=== PATIENT | female | born 1950 | race Caucasian/White ===

== ENCOUNTER → 2022-05-30 | Outpatient (REF) | payer MEDICARE ==
[2022-05-30 15:46] LABS: ALBUMIN 3.5 G/DL (3.2-5.2); BILIRUBIN,DIRECT 0.4 MG/DL (<0.4); BILIRUBIN,TOTAL 1.2 MG/DL (0.3-1.2); CHOLESTEROL RISK RATIO 3.7 (<5); HDL CHOLESTEROL 43.7 MG/DL (>40); LDL CHOLESTEROL 77.5 MG/DL (<100); TOTAL PROTEIN 6.2 G/DL (5.7-8.2)
[2022-05-30 15:50] LABS: THYROID STIMULATING HORMONE 12.075 uIU/ML (0.55-4.78); TOTAL 25(OH) VITAMIN D 49.2 NG/ML (20.0-100.0)
[2022-05-30 16:08] LABS: BASO # 0.1 10^3/uL (0.0-0.2); EOS # 0.4 10^3/uL (0.0-0.5); HEMATOCRIT 46.2 % (36.0-47.0); HEMOGLOBIN 14.4 g/dl (12.0-15.5); LYMPH # 1.4 10^3/uL (1.5-5.0); LYMPH % 22.5 % (24.0-44.0); MEAN CORPUSCULAR HEMOGLOBIN 33.6 pg (27.0-33.0); MEAN CORPUSCULAR HGB CONC 31.2 g/dl (32.0-36.5); MEAN CORPUSCULAR VOLUME 107.9 fl (80.0-96.0); MONO # 0.4 10^3/uL (0.0-0.8); MONO % 6.8 % (2.0-8.0); NEUTROPHILS # 3.8 10^3/uL (1.5-8.5); NEUTROPHILS % 62.5 % (36.0-66.0); PLATELET COUNT, AUTOMATED 232 10^3/uL (150-450); RED BLOOD COUNT 4.28 10^6/uL (4.00-5.40)
[2022-05-30 17:23] LABS: HEMOGLOBIN A1c 4.7 % (4.0-6.0)
[2022-05-31 11:12] LABS: CALCIUM LEVEL 9.8 MG/DL (8.3-10.6); CREATININE FOR GFR 0.99 MG/DL (0.55-1.30); GLOMERULAR FILTRATION RATE 58.7 (>39); POTASSIUM SERUM 4.2 MMOL/L (3.5-5.1)
[2022-05-31 11:14] LABS: FOLATE 19.5 NG/ML (>5.4)
[2022-05-31 11:15] LABS: FREE T4 0.95 NG/DL (0.89-1.76)
== END ==
LOC: M LAB REF 14:34
PROVIDERS: ATTEND Nurse Practitioner Family
DX: Z00.00 Encounter for general adult medical examination without abnormal findings (principal); I10 Essential (primary) hypertension; E03.9 Hypothyroidism, unspecified; D75.89 Other specified diseases of blood and blood-forming organs

== ENCOUNTER → 2022-06-19 | Outpatient (REF) | payer MEDICARE ==
[2022-06-19 15:54] LABS: CALCIUM LEVEL 9.6 MG/DL (8.3-10.6); CREATININE FOR GFR 0.99 MG/DL (0.55-1.30); GLOMERULAR FILTRATION RATE 58.7 (>39); POTASSIUM SERUM 4.1 MMOL/L (3.5-5.1)
[2022-06-19 15:56] LABS: FREE T4 0.98 NG/DL (0.89-1.76)
[2022-06-19 15:57] LABS: FOLATE 17.13 NG/ML (>5.4)
== END ==
LOC: M LAB REF 15:00
PROVIDERS: ATTEND Nurse Practitioner Family
DX: E03.9 Hypothyroidism, unspecified (principal); D75.89 Other specified diseases of blood and blood-forming organs

== ENCOUNTER → 2022-07-17 | Outpatient (REF) | payer MEDICARE ==
[2022-07-17 17:19] LABS: FREE T4 0.93 NG/DL (0.89-1.76); THYROID STIMULATING HORMONE 7.763 uIU/ML (0.55-4.78)
== END ==
LOC: M LAB REF 16:32
PROVIDERS: ATTEND Nurse Practitioner Family
DX: E03.9 Hypothyroidism, unspecified (principal)

== ENCOUNTER 2022-09-21 12:40 | Inpatient (IN) | payer MEDICARE ==
[~2022-09-21] VITALS: Ht 165.1 cm; Wt 76.5 kg
[2022-09-21] MEDS ORDERED: NS 1,000 ML IV ONE ×2 (12:50→14:45)
[2022-09-21] MEDS ORDERED: LISI5TAB11 PO (13:04)
[2022-09-21] MEDS ORDERED: ELIQ5TAB PO (13:04)
[2022-09-21] MEDS ORDERED: LABE20TAB PO (13:04)
[2022-09-21] MEDS ORDERED: ATOR40TA75 PO (13:04)
[2022-09-21] MEDS ORDERED: AMLO1TAB24 PO (13:04)
[2022-09-21] MEDS ORDERED: TRAZ-252 PO (13:04)
[2022-09-21] MEDS ORDERED: LEVO50TA5 PO (13:04)
[2022-09-21 13:13] LABS: BASO % 0.1 % (0.0-1.0); EOS % 0.2 % (0.0-3.0); HEMATOCRIT 35.6 % (36.0-47.0); HEMOGLOBIN 11.9 g/dl (12.0-15.5); LYMPH # 0.8 10^3/uL (1.5-5.0); LYMPH % 4.8 % (24.0-44.0); MEAN CORPUSCULAR HEMOGLOBIN 33.7 pg (27.0-33.0); MEAN CORPUSCULAR HGB CONC 33.4 g/dl (32.0-36.5); MEAN CORPUSCULAR VOLUME 100.8 fl (80.0-96.0); MONO # 0.9 10^3/uL (0.0-0.8); MONO % 5.4 % (2.0-8.0); NEUTROPHILS # 15.4 10^3/uL (1.5-8.5); PLATELET COUNT, AUTOMATED 185 10^3/uL (150-450); RED BLOOD COUNT 3.53 10^6/uL (4.00-5.40); WHITE BLOOD COUNT 17.2 10^3/uL (4.0-10.0)
[2022-09-21 13:42] LABS: ALBUMIN 2.2 G/DL (3.2-5.2); BILIRUBIN,DIRECT 1.3 MG/DL (<0.4); BILIRUBIN,TOTAL 2.2 MG/DL (0.3-1.2); CALCIUM LEVEL 8.2 MG/DL (8.3-10.6); CREATININE FOR GFR 1.89 MG/DL (0.55-1.30); GLOMERULAR FILTRATION RATE 27.8 (>39); POTASSIUM SERUM 4.7 MMOL/L (3.5-5.1); TOTAL PROTEIN 4.8 G/DL (5.7-8.2)
[2022-09-21] MEDS ORDERED: CIPROFLOXACIN 400 MG in IV 1 EA IV ONE (14:35)
[2022-09-21] MEDS ORDERED: metroNIDAZOLE 500 MG in IV 1 EA IV ONE (14:35)
[2022-09-21] MEDS ORDERED: fentaNYL 100 MCG/2 ML INJECTION IV ONE (15:05)
[2022-09-21] MEDS ORDERED: ONDANSETRON 4MG 2ML VIAL IV ONE (21:15)
[2022-09-21] MEDS ORDERED: fentaNYL 100 MCG/2 ML INJECTION IV PRN (21:15)
[2022-09-21] MEDS ORDERED: NS 1,000 ML IV SCH (21:15)
[2022-09-21] MEDS ORDERED: HOME MED LIST COMPLETE! XX SCH (21:35)
[2022-09-21] MEDS ORDERED: ONDANSETRON 4MG 2ML VIAL IV PRN ×2 (22:10→22:20)
[2022-09-21] MEDS ORDERED: MORPHINE 2 MG/ML 1ML VIAL IV PRN (22:10)
[2022-09-21] MEDS ORDERED: PANTOPRAZOLE 40MG VIAL IV ONE (22:45)
[2022-09-21] MEDS ORDERED: RAMELTEON 8 MG TAB (ROZEREM) PO PRN (22:55)
[2022-09-21] MEDS ORDERED: LEVOTHYROXINE 50MCG TABLET (0.05MG) PO SCH (22:58)
[2022-09-22] MEDS ORDERED: LevoFLOXacin IV 750 MG in IV 1 EA IV SCH ×2
[2022-09-22 00:01] LABS: FREE T4 1.18 NG/DL (0.89-1.76); THYROID STIMULATING HORMONE 11.436 uIU/ML (0.55-4.78)
[2022-09-22 00:17] VITALS: BP 110/64
[2022-09-22] MEDS: metroNIDAZOLE 500 MG in IV 1 EA IV SCH ×4 (00:43→22:16)
[2022-09-22 00:58] LABS: HEMATOCRIT 36.7 % (36.0-47.0); HEMOGLOBIN 12.1 g/dl (12.0-15.5)
[2022-09-22] MEDS ORDERED: MORPHINE 2 MG/ML 1ML VIAL IV ONE (03:15)
[2022-09-22 06:00] VITALS: BP 100/62
[2022-09-22] MEDS ORDERED: MORPHINE 2 MG/ML 1ML VIAL IV PRN ×2 (06:00→21:00)
[2022-09-22 06:41] LABS: HEMATOCRIT 35.3 % (36.0-47.0); HEMOGLOBIN 11.5 g/dl (12.0-15.5); MEAN CORPUSCULAR HEMOGLOBIN 33.2 pg (27.0-33.0); MEAN CORPUSCULAR HGB CONC 32.6 g/dl (32.0-36.5); PLATELET COUNT, AUTOMATED 182 10^3/uL (150-450); RED BLOOD COUNT 3.46 10^6/uL (4.00-5.40); WHITE BLOOD COUNT 15.5 10^3/uL (4.0-10.0)
[2022-09-22 07:01] LABS: BILIRUBIN,TOTAL 3.4 MG/DL (0.3-1.2); CALCIUM LEVEL 8.4 MG/DL (8.3-10.6); CREATININE FOR GFR 1.34 MG/DL (0.55-1.30); GLOMERULAR FILTRATION RATE 41.4 (>39); MAGNESIUM LEVEL 1.7 MG/DL (1.8-2.4); POTASSIUM SERUM 4.3 MMOL/L (3.5-5.1); TOTAL PROTEIN 4.5 G/DL (5.7-8.2)
[2022-09-22] MEDS: MORPHINE 4 MG/ML 1ML VIAL IV PRN ×3 (09:55→17:10)
[2022-09-22] MEDS: NS 1,000 ML IV SCH ×2 (10:15→20:31)
[2022-09-22] MEDS: MAG SULF 1GM/100ML (MAG RUN) 1 GM in IV 1 EA IV SCH ×3 (12:31→16:24)
[2022-09-22 14:00] VITALS: BP 109/64
[2022-09-22] MEDS: HEPARIN SOD (PORCINE) 5000UNITS/ML 1ML VIAL/SYRINGE SQ SCH ×2 (15:01→21:11)
[2022-09-22] MEDS ORDERED: LEVOTHYROXINE 50MCG TABLET (0.05MG) PO SCH (16:00)
[2022-09-22] MEDS: LEVOTHYROXINE 75MCG TABLET (0.075MG) PO SCH (16:24)
[2022-09-22 17:48] VITALS: BP 116/70
[2022-09-22 19:02] LABS: VENOUS HCO3 23.3 MMOL/L (23.0-27.0); VENOUS O2 SATURATION 94.3 % (60.0-80.0); VENOUS PARTIAL PRESSURE CO2 51.6 mmHg (38.0-50.0); VENOUS PARTIAL PRESSURE O2 76.6 mmHg (30.0-50.0); VENOUS PH 7.272 UNITS (7.330-7.430); VENOUS STANDARD HCO3 21.1 MMOL/L; VENOUS TOTAL CO2 24.9 MMOL/L (24.0-28.0)
[2022-09-22 19:12] LABS: HEMATOCRIT 38.1 % (36.0-47.0); HEMOGLOBIN 12.3 g/dl (12.0-15.5); MEAN CORPUSCULAR HEMOGLOBIN 33.1 pg (27.0-33.0); MEAN CORPUSCULAR HGB CONC 32.3 g/dl (32.0-36.5); MEAN CORPUSCULAR VOLUME 102.4 fl (80.0-96.0); PLATELET COUNT, AUTOMATED 195 10^3/uL (150-450); RED BLOOD COUNT 3.72 10^6/uL (4.00-5.40); WHITE BLOOD COUNT 16.3 10^3/uL (4.0-10.0)
[2022-09-22 19:40] VITALS: BP 115/70
[2022-09-22 19:41] LABS: BILIRUBIN,TOTAL 3.1 MG/DL (0.3-1.2); CALCIUM LEVEL 8.2 MG/DL (8.3-10.6); CREATININE FOR GFR 1.07 MG/DL (0.55-1.30); GLOMERULAR FILTRATION RATE 53.7 (>39); POTASSIUM SERUM 4.5 MMOL/L (3.5-5.1); TOTAL PROTEIN 4.8 G/DL (5.7-8.2)
[2022-09-22] MEDS ORDERED: oxyCODONE 5MG TAB PO PRN (20:05)
[2022-09-22 20:31] VITALS: BP 116/72
[2022-09-22 22:04] LABS: VENOUS HCO3 25.4 MMOL/L (23.0-27.0); VENOUS O2 SATURATION 44.4 % (60.0-80.0); VENOUS PARTIAL PRESSURE CO2 55.1 mmHg (38.0-50.0); VENOUS PARTIAL PRESSURE O2 24.3 mmHg (30.0-50.0); VENOUS PH 7.282 UNITS (7.330-7.430); VENOUS STANDARD HCO3 21.7 MMOL/L; VENOUS TOTAL CO2 27.1 MMOL/L (24.0-28.0)
[2022-09-23] VITALS (8 sets, daily range): BP systolic 111–121; BP diastolic 58–65
[2022-09-23] MEDS: NS 1,000 ML IV SCH ×2 (05:07→18:10)
[2022-09-23] MEDS: metroNIDAZOLE 500 MG in IV 1 EA IV SCH ×3 (05:07→22:25)
[2022-09-23] MEDS: HEPARIN SOD (PORCINE) 5000UNITS/ML 1ML VIAL/SYRINGE SQ SCH ×4 (05:07→22:45)
[2022-09-23 06:55] LABS: INR 2.39; PROTHROMBIN TIME 26.5 SECONDS (12.5-14.5)
[2022-09-23 06:56] LABS: PARTIAL THROMBOPLASTIN TIME 52.8 SECONDS (24.8-34.2)
[2022-09-23 08:10] LABS: BASO % 0.1 % (0.0-1.0); EOS # 0.1 10^3/uL (0.0-0.5); EOS % 0.4 % (0.0-3.0); HEMATOCRIT 33.9 % (36.0-47.0); HEMOGLOBIN 11.1 g/dl (12.0-15.5); LYMPH # 0.6 10^3/uL (1.5-5.0); LYMPH % 4.3 % (24.0-44.0); MEAN CORPUSCULAR HEMOGLOBIN 33.5 pg (27.0-33.0); MEAN CORPUSCULAR HGB CONC 32.7 g/dl (32.0-36.5); MEAN CORPUSCULAR VOLUME 102.4 fl (80.0-96.0); MONO # 1.1 10^3/uL (0.0-0.8); MONO % 7.9 % (2.0-8.0); NEUTROPHILS # 12.3 10^3/uL (1.5-8.5); NEUTROPHILS % 86.5 % (36.0-66.0); PLATELET COUNT, AUTOMATED 198 10^3/uL (150-450); RED BLOOD COUNT 3.31 10^6/uL (4.00-5.40); WHITE BLOOD COUNT 14.2 10^3/uL (4.0-10.0)
[2022-09-23 08:20] LABS: ALBUMIN 1.8 G/DL (3.2-5.2); BILIRUBIN,TOTAL 2.7 MG/DL (0.3-1.2); CALCIUM LEVEL 8.2 MG/DL (8.3-10.6); CREATININE FOR GFR 1.01 MG/DL (0.55-1.30); GLOMERULAR FILTRATION RATE 57.4 (>39); POTASSIUM SERUM 3.9 MMOL/L (3.5-5.1); TOTAL PROTEIN 4.3 G/DL (5.7-8.2)
[2022-09-23] MEDS ORDERED: KETOROLAC 30 MG/ML 1ML VIAL IV ONE (10:00)
[2022-09-23] MEDS ORDERED: cefTRIAXone SOD 1 GM in D5W MINI-BAG PLUS 50 ML IV SCH (11:00)
[2022-09-23] MEDS ORDERED: ISOVUE-300 61% 100ML VIAL As Ordered ONE (12:46)
[2022-09-23] MEDS ORDERED: fentaNYL 100 MCG/2 ML INJECTION As Ordered ONE (12:46)
[2022-09-23] MEDS ORDERED: LIDOCAINE 1% MDV 20ML VIAL As Ordered ONE (12:46)
[2022-09-23] MEDS ORDERED: MIDAZOLAM INJ 2MG/2ML VIAL As Ordered ONE (12:46)
[2022-09-23] MEDS ORDERED: diphenhydrAMINE 50MG/ML VIAL As Ordered ONE (12:46)
[2022-09-23 13:59] LABS: INR 2.02; PROTHROMBIN TIME 23.2 SECONDS (12.5-14.5)
[2022-09-23] MEDS ORDERED: PROTHROMBIN COMPLEX CONCENTRAT IV ONE (14:00)
[2022-09-23] MEDS ORDERED: PROTHROMBIN COMPLEX CONCEN IV ONE (14:00)
[2022-09-23] MEDS ORDERED: [UNRECOGNIZED DRUG - OTHER] IV ONE (14:00)
[2022-09-23] MEDS: LEVOTHYROXINE 75MCG TABLET (0.075MG) PO SCH (16:44)
[2022-09-24] MEDS: NS 1,000 ML IV SCH (02:07)
[2022-09-24] MEDS: HEPARIN SOD (PORCINE) 5000UNITS/ML 1ML VIAL/SYRINGE SQ SCH ×3 (05:12→20:28)
[2022-09-24] MEDS: metroNIDAZOLE 500 MG in IV 1 EA IV SCH (05:12)
[2022-09-24 05:48] VITALS: BP 113/58
[2022-09-24 06:00] VITALS: BP 113/58
[2022-09-24 06:31] LABS: BASO % 0.3 % (0.0-1.0); EOS # 0.2 10^3/uL (0.0-0.5); EOS % 2.4 % (0.0-3.0); HEMOGLOBIN 10.3 g/dl (12.0-15.5); LYMPH # 0.9 10^3/uL (1.5-5.0); MEAN CORPUSCULAR HEMOGLOBIN 33.4 pg (27.0-33.0); MEAN CORPUSCULAR HGB CONC 33.2 g/dl (32.0-36.5); MEAN CORPUSCULAR VOLUME 100.6 fl (80.0-96.0); MONO # 0.9 10^3/uL (0.0-0.8); MONO % 9.6 % (2.0-8.0); NEUTROPHILS # 6.9 10^3/uL (1.5-8.5); NEUTROPHILS % 76.2 % (36.0-66.0); PLATELET COUNT, AUTOMATED 195 10^3/uL (150-450); RED BLOOD COUNT 3.08 10^6/uL (4.00-5.40); WHITE BLOOD COUNT 9.1 10^3/uL (4.0-10.0)
[2022-09-24 07:27] LABS: ALBUMIN 1.7 G/DL (3.2-5.2); ALKALINE PHOSPHATASE 476 U/L (46-116); ALT/SGPT 127 U/L (7.0-40); AST/SGOT 88 U/L (<34); BILIRUBIN,TOTAL 1.3 MG/DL (0.3-1.2); BLOOD UREA NITROGEN 41 MG/DL (9-23); CALCIUM LEVEL 7.8 MG/DL (8.3-10.6); CARBON DIOXIDE LEVEL 21 MMOL/L (20-31); CHLORIDE LEVEL 111 MMOL/L (98-107); CREATININE FOR GFR 0.95 MG/DL (0.55-1.30); GLOMERULAR FILTRATION RATE > 60.0 (>39); GLUCOSE, FASTING 105 MG/DL (74-106); POTASSIUM SERUM 3.7 MMOL/L (3.5-5.1); SODIUM LEVEL 139 MMOL/L (136-145); TOTAL PROTEIN 4.1 G/DL (5.7-8.2)
[2022-09-24 08:41] LABS: INR 1.72; PROTHROMBIN TIME 20.5 SECONDS (12.5-14.5)
[2022-09-24] MEDS: CEFDINIR 300 MG CAP (OMNICEF) PO SCH ×2 (13:03→20:27)
[2022-09-24] MEDS: metroNIDAZOLE (FLAGYL) 500MG TABLET PO SCH ×2 (13:03→20:27)
[2022-09-24 14:00] VITALS: BP 115/58
[2022-09-24] MEDS: LEVOTHYROXINE 75MCG TABLET (0.075MG) PO SCH (17:03)
[2022-09-25] MEDS: HEPARIN SOD (PORCINE) 5000UNITS/ML 1ML VIAL/SYRINGE SQ SCH ×3 (05:19→20:51)
[2022-09-25] MEDS: metroNIDAZOLE (FLAGYL) 500MG TABLET PO SCH ×3 (05:19→20:51)
[2022-09-25 05:28] VITALS: BP 120/65
[2022-09-25 06:00] VITALS: BP 120/65
[2022-09-25 06:27] LABS: BASO # 0.1 10^3/uL (0.0-0.2); BASO % 0.6 % (0.0-1.0); EOS # 0.3 10^3/uL (0.0-0.5); EOS % 2.8 % (0.0-3.0); HEMATOCRIT 31.7 % (36.0-47.0); HEMOGLOBIN 10.4 g/dl (12.0-15.5); LYMPH # 1.5 10^3/uL (1.5-5.0); LYMPH % 13.3 % (24.0-44.0); MEAN CORPUSCULAR HEMOGLOBIN 32.8 pg (27.0-33.0); MEAN CORPUSCULAR HGB CONC 32.8 g/dl (32.0-36.5); MONO # 0.9 10^3/uL (0.0-0.8); NEUTROPHILS % 71.5 % (36.0-66.0); PLATELET COUNT, AUTOMATED 238 10^3/uL (150-450); RED BLOOD COUNT 3.17 10^6/uL (4.00-5.40); WHITE BLOOD COUNT 11.3 10^3/uL (4.0-10.0)
[2022-09-25 07:01] LABS: ALBUMIN 1.8 G/DL (3.2-5.2); ALKALINE PHOSPHATASE 423 U/L (46-116); ALT/SGPT 94 U/L (7.0-40); AST/SGOT 50 U/L (<34); BILIRUBIN,TOTAL 1.2 MG/DL (0.3-1.2); BLOOD UREA NITROGEN 32 MG/DL (9-23); CALCIUM LEVEL 8.2 MG/DL (8.3-10.6); CARBON DIOXIDE LEVEL 23 MMOL/L (20-31); CHLORIDE LEVEL 111 MMOL/L (98-107); CREATININE FOR GFR 0.83 MG/DL (0.55-1.30); GLOMERULAR FILTRATION RATE > 60.0 (>39); GLUCOSE, FASTING 97 MG/DL (74-106); POTASSIUM SERUM 3.7 MMOL/L (3.5-5.1); SODIUM LEVEL 140 MMOL/L (136-145); TOTAL PROTEIN 4.2 G/DL (5.7-8.2)
[2022-09-25] MEDS: CEFDINIR 300 MG CAP (OMNICEF) PO SCH ×2 (08:33→20:50)
[2022-09-25] MEDS: LEVOTHYROXINE 75MCG TABLET (0.075MG) PO SCH (15:10)
[2022-09-26] MEDS: metroNIDAZOLE (FLAGYL) 500MG TABLET PO SCH ×3 (05:53→20:57)
[2022-09-26] MEDS: HEPARIN SOD (PORCINE) 5000UNITS/ML 1ML VIAL/SYRINGE SQ SCH ×3 (05:53→20:57)
[2022-09-26 06:00] VITALS: BP 122/67
[2022-09-26 06:22] LABS: HEMATOCRIT 31.6 % (36.0-47.0); HEMOGLOBIN 10.6 g/dl (12.0-15.5); MEAN CORPUSCULAR HEMOGLOBIN 33.3 pg (27.0-33.0); MEAN CORPUSCULAR HGB CONC 33.5 g/dl (32.0-36.5); MEAN CORPUSCULAR VOLUME 99.4 fl (80.0-96.0); PLATELET COUNT, AUTOMATED 224 10^3/uL (150-450); RED BLOOD COUNT 3.18 10^6/uL (4.00-5.40); WHITE BLOOD COUNT 10.2 10^3/uL (4.0-10.0)
[2022-09-26 06:52] LABS: ALBUMIN 1.7 G/DL (3.2-5.2); ALKALINE PHOSPHATASE 464 U/L (46-116); ALT/SGPT 73 U/L (7.0-40); AST/SGOT 47 U/L (<34); BILIRUBIN,TOTAL 1.3 MG/DL (0.3-1.2); BLOOD UREA NITROGEN 26 MG/DL (9-23); CALCIUM LEVEL 8.4 MG/DL (8.3-10.6); CARBON DIOXIDE LEVEL 26 MMOL/L (20-31); CHLORIDE LEVEL 111 MMOL/L (98-107); CREATININE FOR GFR 0.75 MG/DL (0.55-1.30); GLOMERULAR FILTRATION RATE > 60.0 (>39); GLUCOSE, FASTING 90 MG/DL (74-106); POTASSIUM SERUM 3.7 MMOL/L (3.5-5.1); SODIUM LEVEL 141 MMOL/L (136-145); TOTAL PROTEIN 4.2 G/DL (5.7-8.2)
[2022-09-26 06:54] LABS: ATYPICAL LYMPH 3 % (0-5); EOSINOPHILS 1 % (0-3); LYMPHOCYTES 15 % (16-44); MONOCYTES 8 % (0-5); NEUTROPHILS 72 % (28-66); PLATELET ESTIMATE NORMAL (NORMAL)
[2022-09-26] MEDS: CEFDINIR 300 MG CAP (OMNICEF) PO SCH ×2 (10:10→20:57)
[2022-09-26] MEDS: LEVOTHYROXINE 75MCG TABLET (0.075MG) PO SCH (16:08)
[2022-09-27 05:10] VITALS: BP 132/72
[2022-09-27] MEDS: metroNIDAZOLE (FLAGYL) 500MG TABLET PO SCH ×2 (05:29→14:27)
[2022-09-27] MEDS: HEPARIN SOD (PORCINE) 5000UNITS/ML 1ML VIAL/SYRINGE SQ SCH (05:31)
[2022-09-27 06:47] LABS: HEMATOCRIT 31.8 % (36.0-47.0); HEMOGLOBIN 10.4 g/dl (12.0-15.5); MEAN CORPUSCULAR HEMOGLOBIN 32.4 pg (27.0-33.0); MEAN CORPUSCULAR HGB CONC 32.7 g/dl (32.0-36.5); MEAN CORPUSCULAR VOLUME 99.1 fl (80.0-96.0); PLATELET COUNT, AUTOMATED 223 10^3/uL (150-450); RED BLOOD COUNT 3.21 10^6/uL (4.00-5.40); WHITE BLOOD COUNT 10.3 10^3/uL (4.0-10.0)
[2022-09-27 07:18] LABS: ALBUMIN 1.8 G/DL (3.2-5.2); ALKALINE PHOSPHATASE 376 U/L (46-116); ALT/SGPT 56 U/L (7.0-40); AST/SGOT 33 U/L (<34); BILIRUBIN,TOTAL 1.1 MG/DL (0.3-1.2); BLOOD UREA NITROGEN 21 MG/DL (9-23); CALCIUM LEVEL 7.8 MG/DL (8.3-10.6); CARBON DIOXIDE LEVEL 26 MMOL/L (20-31); CHLORIDE LEVEL 111 MMOL/L (98-107); CREATININE FOR GFR 0.62 MG/DL (0.55-1.30); GLOMERULAR FILTRATION RATE > 60.0 (>39); GLUCOSE, FASTING 86 MG/DL (74-106); POTASSIUM SERUM 3.5 MMOL/L (3.5-5.1); SODIUM LEVEL 142 MMOL/L (136-145); TOTAL PROTEIN 4.2 G/DL (5.7-8.2)
[2022-09-27 07:41] LABS: ATYPICAL LYMPH 5 % (0-5); EOSINOPHILS 2 % (0-3); LYMPHOCYTES 11 % (16-44); MONOCYTES 9 % (0-5); NEUTROPHILS 73 % (28-66)
[2022-09-27 07:42] LABS: ANISOCYTOSIS 1+; PLATELET ESTIMATE NORMAL (NORMAL)
[2022-09-27] MEDS ORDERED: APIXABAN 5 MG TAB (ELIQUIS) PO SCH (09:00)
[2022-09-27] MEDS: CEFDINIR 300 MG CAP (OMNICEF) PO SCH (10:24)
[2022-09-27] MEDS ORDERED: PROB250C PO (10:53)
[2022-09-27] MEDS ORDERED: CEFD300CAP PO (10:53)
[2022-09-27] MEDS ORDERED: LEVO75TA4 PO (10:53)
[2022-09-27] MEDS ORDERED: METR-265 PO (10:53)
[2022-09-27] MEDS: LEVOTHYROXINE 75MCG TABLET (0.075MG) PO SCH (15:26)
[2022-09-27] MEDS ORDERED: ATORVASTATIN 20 MG TAB PO SCH (21:00)
[2022-09-27] MEDS ORDERED: traZODone 50 MG TAB PO SCH (21:00)
== END 2022-09-27 17:08 | disposition home health service (06) | DRG 444 ==
LOC: M ED 12:40 → EDBD 12:40 → M ED INP 22:09 → M MSPAV 09-22 00:17
PROVIDERS: ADMIT Internal Medicine; ATTEND Internal Medicine
PROC: 0F9430Z Drainage of Gallbladder with Drainage Device, Percutaneous Approach (ICD-10-PCS; principal; 2022-09-23 16:30)
DX: K81.0 Acute cholecystitis (principal); G93.41 Metabolic encephalopathy; I69.354 Hemiplegia and hemiparesis following cerebral infarction affecting left non-dominant side; N17.9 Acute kidney failure, unspecified; I10 Essential (primary) hypertension; E02 Subclinical iodine-deficiency hypothyroidism; E78.5 Hyperlipidemia, unspecified; E83.42 Hypomagnesemia; G47.00 Insomnia, unspecified; Z86.711 Personal history of pulmonary embolism; Z86.718 Personal history of other venous thrombosis and embolism; Z79.01 Long term (current) use of anticoagulants; R94.31 Abnormal electrocardiogram [ECG] [EKG]; Z88.0 Allergy status to penicillin; Z79.899 Other long term (current) drug therapy; Z86.73 Personal history of transient ischemic attack (TIA), and cerebral infarction without residual deficits

== ENCOUNTER 2022-10-20 11:49 | Emergency (ER) | payer MEDICARE ==
[~2022-10-20] VITALS: Ht 165.1 cm; Wt 67.7 kg
[~2022-10-20 11:49] MED LIST: AMLO1TAB24 PO; ATOR40TA75 PO; CEFD300CAP PO; ELIQ5TAB PO; LABE20TAB PO; LEVO50TA5 PO; LEVO75TA4 PO; LISI5TAB11 PO; METR-265 PO; PROB250C PO; TRAZ-252 PO
[2022-10-20 13:36] VITALS: BP 116/88; TEMP 97.5; O2SAT 100
== END 2022-10-20 13:50 | disposition home or self-care (01) ==
LOC: M ED 11:49
DX: K80.70 Calculus of gallbladder and bile duct without cholecystitis without obstruction (principal); I10 Essential (primary) hypertension; E78.5 Hyperlipidemia, unspecified; Z86.73 Personal history of transient ischemic attack (TIA), and cerebral infarction without residual deficits; Z86.718 Personal history of other venous thrombosis and embolism; Z88.0 Allergy status to penicillin; Z79.01 Long term (current) use of anticoagulants; Z79.02 Long term (current) use of antithrombotics/antiplatelets; Z79.2 Long term (current) use of antibiotics; Z79.899 Other long term (current) drug therapy

== ENCOUNTER → 2022-11-26 | Outpatient (REF) | payer MEDICARE ==
[2022-11-26 19:26] LABS: FREE T4 1.02 NG/DL (0.89-1.76); THYROID STIMULATING HORMONE 6.373 uIU/ML (0.55-4.78)
== END ==
LOC: M LAB REF 16:57
PROVIDERS: ATTEND Nurse Practitioner Family
DX: E03.9 Hypothyroidism, unspecified (principal)

== ENCOUNTER → 2023-01-24 | Outpatient (CLI) | payer MEDICARE | LOC: M RAD 11:08 | PROVIDERS: ATTEND Surgery | DX: K81.1 Chronic cholecystitis (principal); K82.8 Other specified diseases of gallbladder | CPT/HCPCS: 78226; A9537 ==

== ENCOUNTER → 2023-06-04 | Outpatient (REF) | payer MEDICARE ==
[2023-06-04 16:27] LABS: BASO # 0.1 10^3/uL (0.0-0.2); BASO % 0.8 % (0.0-1.0); EOS # 0.4 10^3/uL (0.0-0.5); EOS % 5.8 % (0.0-3.0); HEMATOCRIT 44.5 % (36.0-47.0); HEMOGLOBIN 14.3 g/dl (12.0-15.5); LYMPH # 1.9 10^3/uL (1.5-5.0); MEAN CORPUSCULAR HEMOGLOBIN 32.3 pg (27.0-33.0); MEAN CORPUSCULAR HGB CONC 32.1 g/dl (32.0-36.5); MEAN CORPUSCULAR VOLUME 100.5 fl (80.0-96.0); MONO # 0.3 10^3/uL (0.0-0.8); MONO % 5.5 % (2.0-8.0); NEUTROPHILS # 3.6 10^3/uL (1.5-8.5); NEUTROPHILS % 57.7 % (36.0-66.0); PLATELET COUNT, AUTOMATED 190 10^3/uL (150-450); RED BLOOD COUNT 4.43 10^6/uL (4.00-5.40); WHITE BLOOD COUNT 6.2 10^3/uL (4.0-10.0)
[2023-06-04 16:32] LABS: LDH LACTATE DEHYDROGENASE 143 U/L (120-246)
[2023-06-04 16:33] LABS: ALBUMIN 3.3 G/DL (3.2-5.2); ALKALINE PHOSPHATASE 86 U/L (46-116); ALT/SGPT 49 U/L (7.0-40); AST/SGOT 23 U/L (<34); BILIRUBIN,DIRECT 0.3 MG/DL (<0.4); BLOOD UREA NITROGEN 21 MG/DL (9-23); CALCIUM LEVEL 9.2 MG/DL (8.3-10.6); CARBON DIOXIDE LEVEL 30 MMOL/L (20-31); CHLORIDE LEVEL 107 MMOL/L (98-107); CREATININE FOR GFR 0.89 MG/DL (0.55-1.30); FERRITIN 23.7 NG/ML (7.3-270.7); FREE T4 1.04 NG/DL (0.89-1.76); GLOMERULAR FILTRATION RATE > 60.0 (>39); GLUCOSE, FASTING 116 MG/DL (74-106); IRON (FE) 70 UG/DL (50-170); PERCENT SATURATION 25.7 % (13.2-45.0); PHOSPHORUS LEVEL 3.2 MG/DL (2.4-5.1); POTASSIUM SERUM 3.9 MMOL/L (3.5-5.1); SODIUM LEVEL 142 MMOL/L (136-145); TOTAL IRON BINDING CAPACITY 272 UG/DL (250-425)
[2023-06-04 16:34] LABS: THYROID STIMULATING HORMONE 3.762 uIU/ML (0.55-4.78)
[2023-06-04 16:35] LABS: TOTAL 25(OH) VITAMIN D 78.6 NG/ML (20.0-100.0); URIC ACID 5.2 MG/DL (3.1-7.8)
== END ==
LOC: M LABDRWAD 15:58
PROVIDERS: ATTEND Nurse Practitioner Family
DX: Z00.00 Encounter for general adult medical examination without abnormal findings (principal); I63.9 Cerebral infarction, unspecified; E03.9 Hypothyroidism, unspecified; D64.9 Anemia, unspecified

== ENCOUNTER → 2023-06-19 | Outpatient (CLI) | payer MEDICARE | LOC: M WHC 07:38 | PROVIDERS: ATTEND Surgery | DX: K81.1 Chronic cholecystitis (principal) ==

== ENCOUNTER → 2023-07-28 | Outpatient (CLI) | payer MEDICARE | LOC: M WHC 12:35 | PROVIDERS: ATTEND Nurse Practitioner Family | DX: Z12.31 Encounter for screening mammogram for malignant neoplasm of breast (principal); N95.9 Unspecified menopausal and perimenopausal disorder; Z13.820 Encounter for screening for osteoporosis; M85.851 Other specified disorders of bone density and structure, right thigh; M85.852 Other specified disorders of bone density and structure, left thigh ==

== ENCOUNTER 2023-11-08 20:41 | Emergency (ER) | payer MEDICARE ==
[~2023-11-08] VITALS: Ht 165.1 cm; Wt 68.3 kg
[2023-11-08] MEDS ORDERED: LISI5TAB11 (20:57)
[2023-11-08] MEDS ORDERED: ALEN70TA82 (20:57)
[2023-11-08 22:35] LABS: BASO # 0.1 10^3/uL (0.0-0.2); BASO % 0.8 % (0.0-1.0); EOS # 0.2 10^3/uL (0.0-0.5); EOS % 2.6 % (0.0-3.0); HEMATOCRIT 44.8 % (36.0-47.0); HEMOGLOBIN 14.7 g/dl (12.0-15.5); LYMPH # 1.8 10^3/uL (1.5-5.0); MEAN CORPUSCULAR HEMOGLOBIN 33.1 pg (27.0-33.0); MEAN CORPUSCULAR HGB CONC 32.8 g/dl (32.0-36.5); MEAN CORPUSCULAR VOLUME 100.9 fl (80.0-96.0); MONO # 0.6 10^3/uL (0.0-0.8); MONO % 8.1 % (2.0-8.0); NEUTROPHILS # 4.5 10^3/uL (1.5-8.5); NEUTROPHILS % 63.2 % (36.0-66.0); PLATELET COUNT, AUTOMATED 206 10^3/uL (150-450); RED BLOOD COUNT 4.44 10^6/uL (4.00-5.40); WHITE BLOOD COUNT 7.2 10^3/uL (4.0-10.0)
[2023-11-08 22:59] LABS: ALBUMIN 3.1 G/DL (3.2-5.2); BILIRUBIN,DIRECT 0.2 MG/DL (<0.4); BILIRUBIN,TOTAL 1.2 MG/DL (0.3-1.2); CALCIUM LEVEL 9.2 MG/DL (8.3-10.6); CK-MB VALUE MASS 1.2 NG/ML (<3.6); CREATININE FOR GFR 1.08 MG/DL (0.55-1.30); GLOMERULAR FILTRATION RATE 52.8 (>39); POTASSIUM SERUM 4.6 MMOL/L (3.5-5.1)
[2023-11-08 23:03] LABS: THYROID STIMULATING HORMONE 11.968 uIU/ML (0.55-4.78)
[2023-11-08] MEDS ORDERED: ISOVUE-370 76% 100ML VIAL As Ordered ONE (23:32)
[2023-11-09 00:01] LABS: CK-MB VALUE MASS 1.1 NG/ML (<3.6)
[2023-11-09 00:13] LABS: MB/CK RELATIVE INDEX 2.07 (< OR =4)
[2023-11-09 00:46] VITALS: BP 140/74; TEMP 97.9; O2SAT 100
== END 2023-11-09 00:59 | disposition home or self-care (01) ==
LOC: M ED 20:41 → EDBD 20:41 → M ED 11-09 00:59
DX: R07.9 Chest pain, unspecified (principal); I10 Essential (primary) hypertension; I49.1 Atrial premature depolarization; E03.9 Hypothyroidism, unspecified; E78.5 Hyperlipidemia, unspecified; Z86.79 Personal history of other diseases of the circulatory system; Z88.0 Allergy status to penicillin; Z79.01 Long term (current) use of anticoagulants; Z79.02 Long term (current) use of antithrombotics/antiplatelets; Z79.811 Long term (current) use of aromatase inhibitors; Z79.899 Other long term (current) drug therapy
CPT/HCPCS: 36415; 70450; 71045; 71275; 80048; 80076; 82550; 82553; 83735; 83880; 84443; 84484; 85025; 87486; 87581; 87633; 87798; 93005; 93041; 94760; 99285; Q9967

== ENCOUNTER → 2024-01-22 | Outpatient (REF) | payer MEDICARE ==
[~2024-01-22] MED LIST changes: +ALEN70TA82; +LISI5TAB11
[2024-01-22 10:59] LABS: BASO # 0.1 10^3/uL (0.0-0.2); BASO % 1.4 % (0.0-1.0); EOS # 0.3 10^3/uL (0.0-0.5); EOS % 4.9 % (0.0-3.0); HEMATOCRIT 45.7 % (36.0-47.0); HEMOGLOBIN 14.9 g/dl (12.0-15.5); LYMPH # 1.8 10^3/uL (1.5-5.0); MEAN CORPUSCULAR HEMOGLOBIN 33.4 pg (27.0-33.0); MEAN CORPUSCULAR HGB CONC 32.6 g/dl (32.0-36.5); MEAN CORPUSCULAR VOLUME 102.5 fl (80.0-96.0); MONO # 0.4 10^3/uL (0.0-0.8); MONO % 7.4 % (2.0-8.0); NEUTROPHILS # 2.6 10^3/uL (1.5-8.5); NEUTROPHILS % 51.1 % (36.0-66.0); PLATELET COUNT, AUTOMATED 213 10^3/uL (150-450); RED BLOOD COUNT 4.46 10^6/uL (4.00-5.40); WHITE BLOOD COUNT 5.1 10^3/uL (4.0-10.0)
[2024-01-22 11:04] LABS: URIC ACID 5.4 MG/DL (3.1-7.8)
[2024-01-22 11:07] LABS: ALBUMIN 3.3 G/DL (3.2-5.2); BILIRUBIN,TOTAL 0.8 MG/DL (0.3-1.2); CALCIUM LEVEL 9.5 MG/DL (8.3-10.6); CHOLESTEROL RISK RATIO 3.45 (<5); CREATININE FOR GFR 1.04 MG/DL (0.55-1.30); GLOMERULAR FILTRATION RATE 55.1 (>39); HDL CHOLESTEROL 48.6 MG/DL (>40); LDL CHOLESTEROL 99.8 MG/DL (<100); NON-HDL-C 119.4 MG/DL; PHOSPHORUS LEVEL 3.9 MG/DL (2.4-5.1); TOTAL PROTEIN 6.4 G/DL (5.7-8.2)
[2024-01-22 11:09] LABS: FREE T4 0.87 NG/DL (0.89-1.76); THYROID STIMULATING HORMONE 13.824 uIU/ML (0.55-4.78); TOTAL 25(OH) VITAMIN D 59.2 NG/ML (20.0-100.0)
== END ==
LOC: M SHH 10:14
PROVIDERS: ATTEND Nurse Practitioner Family
DX: Z00.01 Encounter for general adult medical examination with abnormal findings (principal); E03.9 Hypothyroidism, unspecified; E04.1 Nontoxic single thyroid nodule; I10 Essential (primary) hypertension; E55.9 Vitamin D deficiency, unspecified

== ENCOUNTER → 2024-03-30 | Outpatient (REF) | payer MEDICARE ==
[2024-03-30 10:33] LABS: BASO # 0.1 10^3/uL (0.0-0.2); BASO % 0.9 % (0.0-1.0); EOS # 0.2 10^3/uL (0.0-0.5); EOS % 3.8 % (0.0-3.0); HEMOGLOBIN 15.1 g/dl (12.0-15.5); LYMPH # 2.2 10^3/uL (1.5-5.0); LYMPH % 40.4 % (24.0-44.0); MEAN CORPUSCULAR HEMOGLOBIN 33.4 pg (27.0-33.0); MEAN CORPUSCULAR HGB CONC 32.1 g/dl (32.0-36.5); MONO # 0.5 10^3/uL (0.0-0.8); MONO % 8.7 % (2.0-8.0); NEUTROPHILS # 2.5 10^3/uL (1.5-8.5); NEUTROPHILS % 45.8 % (36.0-66.0); PLATELET COUNT, AUTOMATED 211 10^3/uL (150-450); RED BLOOD COUNT 4.52 10^6/uL (4.00-5.40); WHITE BLOOD COUNT 5.5 10^3/uL (4.0-10.0)
[2024-03-30 10:38] LABS: URIC ACID 5.9 MG/DL (3.1-7.8)
[2024-03-30 10:41] LABS: ALBUMIN 3.4 G/DL (3.2-5.2); BILIRUBIN,TOTAL 1.3 MG/DL (0.3-1.2); CALCIUM LEVEL 9.2 MG/DL (8.3-10.6); CHOLESTEROL RISK RATIO 3.17 (<5); FREE T4 1.19 NG/DL (0.89-1.76); GLOMERULAR FILTRATION RATE 57.7 (>39); HDL CHOLESTEROL 51.6 MG/DL (>40); NON-HDL-C 112.4 MG/DL; PHOSPHORUS LEVEL 3.9 MG/DL (2.4-5.1); POTASSIUM SERUM 4.1 MMOL/L (3.5-5.1); THYROID STIMULATING HORMONE 8.603 uIU/ML (0.55-4.78); TOTAL 25(OH) VITAMIN D 67.7 NG/ML (20.0-100.0); TOTAL PROTEIN 6.8 G/DL (5.7-8.2)
[2024-03-30 14:54] LABS: CREATININE, URINE 93.9 MG/DL; MAU/CREAT RATIO 6.3 MCG/MG (0.0-30.0)
== END ==
LOC: M SHH 09:23
PROVIDERS: ATTEND Nurse Practitioner Family
DX: Z00.01 Encounter for general adult medical examination with abnormal findings (principal); E03.9 Hypothyroidism, unspecified; I10 Essential (primary) hypertension; E55.9 Vitamin D deficiency, unspecified